=== PATIENT | female | born 1995 | race Caucasian/White ===

== ENCOUNTER 2017-02-06 05:10 | Emergency (ER) | payer BC, OTHER ==
[~2017-02-06] VITALS: Ht 154.9 cm; Wt 71.2 kg
[2017-02-06 05:13] VITALS: TEMP 36.2; Ht 154.9 cm; Wt 71.2 kg
[2017-02-06] MEDS ORDERED: BUPR100T8 PO (05:54)
[2017-02-06 06:03] LABS: URINE APPEARANCE CLEAR (CLEAR); URINE BILIRUBIN NEG (NEG); URINE COLOR YELLOW; URINE NITRITE NEG (NEG); URINE PH 5.5 (4.5-7.5); URINE SPECIFIC GRAVITY 1.012 (1.000-1.030); UROBILINOGEN NEG (NEG); ZZUR CULT IF INDIC CLEAN CATCH NO
[2017-02-06 06:04] LABS: MANUAL MICROSCOPIC REQUIRED? NO; REVIEW REQ? NO
[2017-02-06 06:08] LABS: BASO % 0.3 %; BASO ABS # 0.03 K/uL (0-0.2); COMPLETE YES; EOS % 0.4 %; HEMATOCRIT 40.3 % (37-47); IG% 0.1 %; LYMPH % 23.3 %; MEAN CELL VOLUME 86.5 fL (80-100); MEAN CORPUSCULAR HEMOGLOBIN 28.3 pg (25-34); MEAN CORPUSCULAR HGB CONC 32.8 g/dl (32-36); MONO % 2.9 %; PLATELET COUNT 280 K/uL (130-400); RED BLOOD COUNT 4.66 M/uL (4.2-5.4); WHITE BLOOD COUNT 9.46 K/uL (4.8-10.8)
[2017-02-06 06:29] LABS: ALT/SGPT 26 U/L (12-78); AST/SGOT 16 U/L (15-37); BLOOD UREA NITROGEN 9 mg/dl (7-18); BUN/CREATININE RATIO 11.9 (10-20); CALCIUM 8.5 mg/dl (8.5-10.1); CARBON DIOXIDE 25 mmol/L (21-32); CHLORIDE 107 mmol/L (98-107); CREATININE 0.78 mg/dl (0.60-1.20); GLUCOSE 96 mg/dl (70-99); POTASSIUM 4.1 mmol/L (3.5-5.1); SODIUM 141 mmol/L (136-145)
[2017-02-06 06:34] LABS: BENZODIAZEPINE, URINE NEG (NEG); COCAINE,URINE NEG (NEG); PHENCYCLIDINE, URINE NEG (NEG)
[2017-02-06 06:40] LABS: ALKALINE PHOSPHATASE 56 U/L (45-117)
[2017-02-06 06:44] LABS: ACETAMINOPHEN < 2 ug/ml (10-30)
--- NOTE | 2017-02-06 07:18 | EMERGENCY ROOM VISIT NOTE ---
History Report prepared by Mari: Adam Sargent Under the Supervision of: Dr. Jessie Hdz M.D. First contact with patient: 05:27 Chief Complaint: MENTAL HEALTH EVALUATION Stated Complaint: VOLUNTARY MENTAL HEALTH EVALUATION History of Present Illness The patient is a 21 year old female who presents to the Emergency Room with complaints of persistent suicidal ideation beginning a few hours ago. She was assessed by [facility] shortly prior to arrival after making depressed statements to police after she was arrested for a DUI. She states that this is her second DUI. She states that she had three beers and was driving home from the bar. The patient states that she has been on probation since her DUI last year, and states that she is on the final portion of the probation, which involves regular drug counseling. She has a history of self-harming by cutting her forearms, but states that she has not self-harmed in two months. She feels that she would have likely self-harmed if she was left alone. She states that she does not believe she would actually kill herself, but fears that she would self harm if given the chance. The patient states that she has felt suicidal over the past year. She states that this stems from her fear of prison, and states "I would rather than go to prison". She sees a psychiatrist regularly. The patient denies any chance of . Source of History: patient Onset: A few hours ago Quality: other (suicidal ideation) Timing: other (persistent) Review of Systems See HPI for pertinent positives & negatives. A total of 10 systems reviewed and were otherwise negative. Past Medical & Surgical Medical Problems: (1) No Known Active Medical Problems Family History No pertinent family history stated. Social History Smoking Status: Current Some Day Smoker Marital Status: single Occupation Status: [employer] student Current/Historical Medications Scheduled Bupropion (Wellbutrin Sr), 100 MG PO DAILY Allergies Coded Allergies: No Known Allergies (Unverified , 02/06/17) Physical Exam Vital Signs Date Time Temp Pulse Resp B/P (MAP) Pulse Ox O2 Delivery O2 Flow Rate FiO2 02/06/17 05:13 36.2 84 20 134/78 97 Room Air Physical Exam Vital signs reviewed. General: Well-appearing female, in no significant distress. HEENT: No scleral icterus, PERRLA, neck supple. Atraumatic. Cardiovascular: Regular rate and rhythm, no extra sounds. Pulmonary: Clear to auscultation bilaterally, normal work of breathing. Abdomen: Soft, nontender, nondistended, positive bowel sounds. Musculoskeletal: Atraumatic, no peripheral edema. Neurologic: Patient awake alert and oriented x 3 Skin: Warm, dry, no rash Psych: Positive suicidal ideation. Negative homicidal ideation. Medical Decision & Procedures Laboratory Results 02/06/17 05:56 Red Blood Count 4.66, Mean Corpuscular Volume 86.5, Mean Corpuscular Hemoglobin 28.3, Mean Corpuscular Hemoglobin Concent 32.8, Mean Platelet Volume 10.0, Neutrophils (%) (Auto) 73.0, Lymphocytes (%) (Auto) 23.3, Monocytes (%) (Auto) 2.9, Eosinophils (%) (Auto) 0.4, Basophils (%) (Auto) 0.3, Neutrophils # (Auto) 6.91, Lymphocytes # (Auto) 2.20, Monocytes # (Auto) 0.27, Eosinophils # (Auto) 0.04, Basophils # (Auto) 0.03 02/06/17 05:56 Test 02/06/17 05:25 02/06/17 05:56 Urine Color YELLOW Urine Appearance CLEAR (CLEAR) Urine pH 5.5 (4.5-7.5) Urine Specific [place] 1.012 (1.000-1.030) Urine Protein NEG (NEG) Urine Glucose (UA) NEG (NEG) Urine Ketones NEG (NEG) Urine Occult Blood NEG (NEG) Urine Nitrite NEG (NEG) Urine Bilirubin NEG (NEG) Urine Urobilinogen NEG (NEG) Urine Leukocyte Esterase NEG (NEG) Urine Opiates Screen NEG (NEG) Urine Methadone, Qualitative NEG (NEG) Urine Barbiturates NEG (NEG) Urine Phencyclidine (PCP) Level NEG (NEG) Ur Amphetamine/Methamphetamine NEG (NEG) MDMA (Ecstasy) Screen POS (NEG) Urine Benzodiazepines Screen NEG (NEG) Urine Cocaine Metabolite NEG (NEG) Urine Marijuana (THC) POS (NEG) White Blood Count 9.46 K/uL (4.8-10.8) Red Blood Count 4.66 M/uL (4.2-5.4) Hemoglobin 13.2 g/dL (12.0-16.0) Hematocrit 40.3 % (37-47) Mean Corpuscular Volume 86.5 fL (80-100) Mean Corpuscular Hemoglobin 28.3 pg (25-34) Mean Corpuscular Hemoglobin Concent 32.8 g/dl (32-36) Platelet Count 280 K/uL (130-400) Mean Platelet Volume 10.0 fL (7.4-10.4) Neutrophils (%) (Auto) 73.0 % Lymphocytes (%) (Auto) 23.3 % Monocytes (%) (Auto) 2.9 % Eosinophils (%) (Auto) 0.4 % Basophils (%) (Auto) 0.3 % Neutrophils # (Auto) 6.91 K/uL (1.4-6.5) Lymphocytes # (Auto) 2.20 K/uL (1.2-3.4) Monocytes # (Auto) 0.27 K/uL (0.11-0.59) Eosinophils # (Auto) 0.04 K/uL (0-0.5) Basophils # (Auto) 0.03 K/uL (0-0.2) RDW Standard Deviation 42.6 fL (36.4-46.3) RDW Coefficient of Variation 13.4 % (11.5-14.5) Immature Granulocyte % (Auto) 0.1 % Immature Granulocyte # (Auto) 0.01 K/uL (0.00-0.02) Anion Gap 9.0 mmol/L (3-11) Est Creatinine Clear Calc Drug Dose 102.0 ml/min Estimated GFR () 125.1 Estimated GFR (Non- 107.9 BUN/Creatinine Ratio 11.9 (10-20) Calcium Level 8.5 mg/dl (8.5-10.1) Total Bilirubin 0.3 mg/dl (0.2-1) Direct Bilirubin < 0.1 mg/dl (0-0.2) Aspartate Amino Transf (AST/SGOT) 16 U/L (15-37) Alanine Aminotransferase (ALT/SGPT) 26 U/L (12-78) Alkaline Phosphatase 56 U/L (45-117) Total Protein 7.1 gm/dl (6.4-8.2) Albumin 3.8 gm/dl (3.4-5.0) Thyroid Stimulating Hormone (TSH) 1.290 uIu/ml (0.300-4.500) Salicylates Level 1.8 mg/dl (2.8-20) Acetaminophen Level < 2 ug/ml (10-30) Ethyl Alcohol mg/dL 79.0 mg/dl (0-3) Laboratory results per my review. ED Course 0537: Past medical records reviewed. The patient was evaluated in room A7. A complete history and physical examination was performed. 0730: The patient was signed out to Dr. Eaton at the change of shift pending bed placement. Medical Decision Differential diagnosis: Etiologies such as mood disorder, infection, hypoglycemia, electrolyte abnormalities, cardiac sources, intracerebral event, toxicologic, neurologic, as well as others were entertained. This patient was evaluated and appeared to be in no significant distress. The patient was medically cleared and had been assessed by mental health. She is voluntary for admission due to her suicidal and self-harm statements, inpatient treatment has been recommended. The case is been signed out to Dr. Eaton at the change of shift, pending placement. Impression Primary Impression: Suicidal ideation Scribe Attestation The scribe's documentation has been prepared under my direction and personally reviewed by me in its entirety. I confirm that the note above accurately reflects all work, treatment, procedures, and medical decision making performed by me. Departure Information Dispostion Still a Patient (Signed out to Dr. Eaton) Referrals No Doctor, Assigned (PCP) Patient Instructions My [facility]
[2017-02-06] MEDS ORDERED: BuPROPion SR 100 MG TABCR PO STA (08:41)
--- NOTE | 2017-02-06 09:04 | EMERGENCY ROOM VISIT NOTE ---
ED Visit Note First contact with patient: 08:41 I received this patient at change of shift signout from Dr. Hdz. Please see her note for complete history and physical. The patient was medically cleared prior to my arrival. The patient came to the emergency department after receiving her second DUI in a year. She admits to drinking alcoholic beverages last evening. She made suicidal statements to 302 petition was filled out. The patient was awaiting final mental health evaluation until she was clinically not intoxicated. The patient was awake and alert on my evaluation. She is not clinically intoxicated at this time. I did read the patient's 302 petition. At this time she is denying any suicidal or homicidal ideation. Further mental health evaluation is still pending at this time. The patient was reevaluated by the [facility] delegate and was referred to the [facility]. She was accepted. Transfer paperwork was filled out by myself.
[2017-02-06 13:13] VITALS: BP 124/72; PULSE 82; O2SAT 99
== END 2017-02-06 13:00 ==
LOC: C.EDB 05:11 → C.EDA 13:00
DX: R45.851 Suicidal ideations (principal); F17.200 Nicotine dependence, unspecified, uncomplicated; Z91.5 Personal history of self-harm

== ENCOUNTER → 2017-02-06 | Outpatient (CLI) | payer OTHER ==
[~2017-02-06] MED LIST: BUPR100T8 PO
== END | disposition home or self-care (01) ==
LOC: C.LAB 02:37
DX: Z02.83 Encounter for blood-alcohol and blood-drug test (principal)